=== PATIENT | female | born 1970 | race American Indian/Alaskan Native ===

== ENCOUNTER → 2016-07-29 | Outpatient (CLI) | payer OTHER ==
--- NOTE | 2016-07-29 15:44 | Mammography Report ---
BILATERAL MAMMOGRAM: FINDINGS: The breasts are almost entirely fat (<25% glandular). No mass, distortion, suspicious calcification, or skin change is seen. There is interval changes compared to her prior study in July 2015. CAD was utilized. IMPRESSION: Negative mammogram. There is no mammographic evidence of malignancy. RECOMMENDATION: Follow-up per ACS guidelines. BI-RADS CATEGORY: 1 = Negative ACR BI-RADS MAMMOGRAPHIC CODES: 0 = Needs additional imaging evaluation; 1 = Negative; 2 = Benign; 3 = Probably benign; 4 = Suspicious; 5 = Malignant; 6 = Known biopsy-proven malignancy COMMENT: 1. Dense breast tissue, i.e., adenosis, fibrocystic changes, etc., may obscure an underlying neoplasm. 2. Approximately 10% of cancers are not detected with mammography. 3. A negative mammography report should not delay biopsy if a clinically suspicious mass is present. COMMENT: Patient follow-up letters are generated in [employer] ([place]).
== END ==
LOC: SPVWC 12:54
PROVIDERS: ATTEND Internal Medicine
DX: Z12.31 Encounter for screening mammogram for malignant neoplasm of breast (principal)
CPT/HCPCS: 77067; G0202

== ENCOUNTER 2017-01-03 15:46 | Emergency (ER) | payer OTHER ==
[2017-01-03 17:07] LABS: Eosinophils % (Auto) 0.9 % (0.0-4.3); Hemoglobin 13.1 gm/dl (10.1-14.3); Mean Corpuscular HGB Conc 34 % (30-34); Mean Corpuscular Hemoglobin 27 pg (28-32); Mean Corpuscular Volume 78 fl (79-97); Platelet Count 262 K/mm3 (140-440); Red Blood Count 4.87 M/mm3 (3.65-5.03); Red Cell Distribution Width 14.7 % (13.2-15.2); White Blood Count 6.4 K/mm3 (4.5-11.0)
[2017-01-03 17:26] LABS: Anion Gap 17 mmol/L; BUN/Creatinine Ratio 28.57; Blood Urea Nitrogen 20 mg/dL (7-17); Calcium 9.2 mg/dL (8.4-10.2); Carbon Dioxide 24 mmol/L (22-30); Chloride 101.4 mmol/L (98-107); Potassium 4.6 mmol/L (3.6-5.0); Sodium 138 mmol/L (137-145)
[2017-01-03 18:44] LABS: Glucose 130 mg/dL (65-100)
--- NOTE | 2017-01-03 22:43 | Emergency Department Report ---
ED Shortness of Breath HPI - General Chief Complaint: Dyspnea/Respdistress Stated Complaint: SOB/BACK/HIP PAIN Time Seen by Provider: 01/03/17 22:30 Source: patient Mode of arrival: Ambulatory Limitations: No Limitations - History of Present Illness Initial Comments: 46 years old pleasant female coming today with main complaint of shortness of breath for approximately 6 months. Patient correlated to her shortness of breath with starting on metoprolol 25 mg blood pressure control. Patient denied any chest pain, she stated that she is feeling very weak all the time and out of breath. discussed with her primary care physician and was told because of weight gain that she have, she stated that she gained approximately 60 pounds for the last 6 months. No other complaint. MD Complaint: shortness of breath -: Gradual Improves With: rest Worsens With: exertion Associated Symptoms: denies other symptoms - Related Data Previous Rx's Medication Instructions Recorded Last Taken Type Carvedilol [Coreg] 3.125 mg PO BID #60 tablet 11/24/14 Unknown Rx Hydrochlorothiazide [Hctz] 0.5 tab PO QDAY #30 tablet 11/24/14 Unknown Rx LORazepam [Ativan] 1 mg PO BID PRN #7 tab 07/09/15 Unknown Rx Lisinopril/Hydrochlorothiazide 1 each PO QDAY #60 tablet 07/09/15 Unknown Rx [Zestoretic 20-12.5 mg] Cyclobenzaprine HCl [Flexeril 5 MG 1 tab PO TID #21 tab 07/15/15 Unknown Rx TAB] Ibuprofen [Motrin 800 MG tab] 1 tab PO Q8HR PRN #30 tablet 07/15/15 Unknown Rx Valsartan/Hydrochlorothiazide 1 tab PO QDAY #30 tablet 01/04/17 Unknown Rx [Diovan Hct 160-25 mg] Allergies Allergy/AdvReac Type Severity Reaction Status Date / Time No Known Allergies Allergy Verified 07/15/15 12:49 ED Review of Systems ROS: Stated complaint: SOB/BACK/HIP PAIN Other details as noted in HPI Comment: All other systems reviewed and negative Constitutional: denies: chills, fever Respiratory: denies: orthopnea, shortness of breath Cardiovascular: dyspnea on exertion. denies: chest pain, palpitations, syncope Gastrointestinal: denies: abdominal pain, nausea, vomiting Neurological: weakness. denies: headache ED Past Medical Hx - Past Medical History Hx Hypertension: Yes Hx Psychiatric Treatment: Yes (Panic disorder) - Surgical History Additional Surgical History: Hysterectomy - Social History Smoking Status: Never Smoker Substance Use Type: None - Medications Home Medications: Home Medications Medication Instructions Recorded Confirmed Last Taken Type Carvedilol [Coreg] 3.125 mg PO BID #60 tablet 11/24/14 07/09/15 Unknown Rx Hydrochlorothiazide [Hctz] 0.5 tab PO QDAY #30 tablet 11/24/14 07/09/15 Unknown Rx LORazepam [Ativan] 1 mg PO BID PRN #7 tab 07/09/15 Unknown Rx Lisinopril/Hydrochlorothiazide 1 each PO QDAY #60 tablet 07/09/15 Unknown Rx [Zestoretic 20-12.5 mg] Cyclobenzaprine HCl [Flexeril 5 MG 1 tab PO TID #21 tab 07/15/15 Unknown Rx TAB] Ibuprofen [Motrin 800 MG tab] 1 tab PO Q8HR PRN #30 tablet 07/15/15 Unknown Rx Valsartan/Hydrochlorothiazide 1 tab PO QDAY #30 tablet 01/04/17 Unknown Rx [Diovan Hct 160-25 mg] ED Physical Exam - General Limitations: No Limitations General appearance: alert, in no apparent distress - Eye Eye exam: Present: normal appearance - ENT ENT exam: Present: normal exam - Neck Neck exam: Present: normal inspection, full ROM. Absent: tenderness, meningismus, lymphadenopathy, thyromegaly - Respiratory Respiratory exam: Present: normal lung sounds bilaterally. Absent: wheezes, rales, rhonchi, accessory muscle use, decreased breath sounds, prolonged expiratory - Cardiovascular Cardiovascular Exam: Present: regular rate, normal rhythm, normal heart sounds - GI/Abdominal GI/Abdominal exam: Present: soft. Absent: distended, tenderness, guarding - Neurological Exam Neurological exam: Present: alert, oriented X3, CN II-XII intact - Skin Skin exam: Present: warm ED Course Vital Signs 01/03/17 01/03/17 01/03/17 16:04 22:53 23:27 Temperature 98.5 F Pulse Rate 80 76 Respiratory 18 16 Rate Blood Pressure 136/96 Blood Pressure 156/106 148/92 [Left] O2 Sat by Pulse 99 99 Oximetry ED Medical Decision Making - Lab Data Result diagrams: 01/03/17 16:40 01/03/17 16:40 - EKG Data -: EKG Interpreted by Me Rate: normal - EKG Data Interpretation: no acute changes, normal EKG - Radiology Data Radiology results: image reviewed - Medical Decision Making Review of dictation labs and x-rays did not show any acute finding to be the cause for what she have. I believe this is probably due to metoprolol plus weight gain. I recommended to stop metoprolol I, starts having on Diovan . Critical care attestation.: If time is entered above; I have spent that time in minutes in the direct care of this critically ill patient, excluding procedure time. ED Disposition Clinical Impression: Shortness of breath Disposition: DC-01 TO HOME OR SELFCARE Is pt being admited?: No Condition: Stable Instructions: Dyspnea (ED) Referrals: PRIMARY CARE, [Primary Care Provider] - 3-5 Days
[2017-01-03] MEDS ORDERED: CATAPRES ONE (22:52)
[2017-01-03] MEDS ORDERED: CATAPRES PO ONE (22:56)
[2017-01-03 23:28] VITALS: BP 148/92
--- NOTE | 2017-01-04 09:32 | XRay Report ---
ROUTINE CHEST, TWO VIEWS: HISTORY: Shortness of breath. The trachea, heart, mediastinal contour, lung alfonso and bony thorax are unremarkable. IMPRESSION: Unremarkable chest x-ray. No significant change since 11/23/15.
== END 2017-01-04 00:41 | disposition home or self-care (01) ==
LOC: ED 15:46
DX: R06.02 Shortness of breath (principal); I10 Essential (primary) hypertension
CPT/HCPCS: 36415; 71020; 80048; 83880; 84439; 84443; 84484; 85025; 93005; 93010

== ENCOUNTER 2017-05-23 00:29 | Emergency (ER) | payer OTHER ==
--- NOTE | 2017-05-23 05:29 | Emergency Department Report ---
ED Rash HPI - HPI Chief Complaint: Skin Rash Stated Complaint: RASH Time Seen by Provider: 05/23/17 04:53 Duration: Today Location: Upper Extremities Suspected Cause: Other (Lotion) Rash Symptoms: Yes Itching, No Facial Swelling, No Tongue/Oral Swelling, No Breathing Difficulties, No Choking Sensation, No Wheezing/Dyspnea, No Peeling, No Blistering, No Fever, No Lightheaded, No Malaise, No Myalgias Severity: mild Other History: This is a 46-year-old female nontoxic, well nourished in appearance, no acute signs of distress presents to the ED with c/o of bilateral shoulders and arms rash times one day. She stated she change her lotion yesterday and put her on her shoulders and arms and then a few hours later started itching and developed a macular papular rash. Patient denies any chest pain, shortness of breath, difficulty breathing, facial swelling, lip swelling, headache, stiff neck, nausea, vomiting. Patient denies any drug allergies. Past medical history includes hypertension. ED Review of Systems ROS: Stated complaint: RASH Other details as noted in HPI Constitutional: denies: chills, fever Eyes: denies: eye pain, eye discharge, vision change ENT: denies: ear pain, throat pain Respiratory: denies: cough, shortness of breath, wheezing Cardiovascular: denies: chest pain, palpitations Endocrine: no symptoms reported Gastrointestinal: denies: abdominal pain, nausea, diarrhea Genitourinary: denies: urgency, dysuria, discharge Musculoskeletal: denies: back pain, joint swelling, arthralgia Skin: rash. denies: lesions Neurological: denies: headache, weakness, paresthesias Psychiatric: denies: anxiety, depression Hematological/Lymphatic: denies: easy bleeding, easy bruising ED Past Medical Hx - Past Medical History Previous Medical History?: Yes Hx Hypertension: Yes Hx Psychiatric Treatment: Yes (Panic disorder) - Surgical History Past Surgical History?: Yes Additional Surgical History: Hysterectomy - Social History Smoking Status: Never Smoker Substance Use Type: None - Medications Home Medications: Home Medications Medication Instructions Recorded Confirmed Last Taken Type Carvedilol [Coreg] 3.125 mg PO BID #60 tablet 11/24/14 07/09/15 Unknown Rx Hydrochlorothiazide [Hctz] 0.5 tab PO QDAY #30 tablet 11/24/14 07/09/15 Unknown Rx LORazepam [Ativan] 1 mg PO BID PRN #7 tab 07/09/15 Unknown Rx Lisinopril/Hydrochlorothiazide 1 each PO QDAY #60 tablet 07/09/15 Unknown Rx [Zestoretic 20-12.5 mg] Cyclobenzaprine HCl [Flexeril 5 MG 1 tab PO TID #21 tab 07/15/15 Unknown Rx TAB] Ibuprofen [Motrin 800 MG tab] 1 tab PO Q8HR PRN #30 tablet 07/15/15 Unknown Rx Valsartan/Hydrochlorothiazide 1 tab PO QDAY #30 tablet 01/04/17 Unknown Rx [Diovan Hct 160-25 mg] diphenhydrAMINE [Benadryl CAP] 25 mg PO Q6HR PRN #12 capsule 05/23/17 Unknown Rx predniSONE [Deltasone] 40 mg PO QDAY #5 tab 05/23/17 Unknown Rx Rash Exam - Exam General: Vital signs noted. No distress. Alert and acting appropriately. GENERAL: The patient is a well-developed, well-nourished in no apparent distress. Patient is alert and acting appropriately for age. Alert and oriented 3, no apparent distress, normal gait, atraumatic. No facial swelling and no angioedema present. HEENT: Head is normocephalic and atraumatic. PERRL, Extraocular muscles are intact. Pupils are equal, round, and reactive to light and accommodation. Nares appeared normal. Mouth is well hydrated and without lesions. Mucous membranes are moist. Posterior pharynx clear of any exudate or lesions. Mouth is well hydrated and without lesions. Tonsils not erythematous or swollen. Uvula midline. Tongue elevated. Mucous members are moist. Posterior pharynx clear, no exudate or lesions. Patent airways. NECK: Supple. No carotid bruits. No lymphadenopathy or thyromegaly.nontender. No meningitic signs are noted. LUNGS: Clear to auscultation. Non labor breathing. No intercostal retractions. Symmetrical with respiration, no wheezing, no rales, or crackles. HEART: Regular rate and rhythm without murmur, rubs or gallops. No reproducible. S1, S2 present, regular rate and rhythm without murmur, no rubs, no gallops. ABDOMEN: Soft, nontender, and nondistended. Positive bowel sounds. No hepatosplenomegaly was noted. No guarding or rebound tenderness, negative epigastric bruit. Negative psoas sign, negative may sign, negative McBurneys sign EXTREMITIES: Without any cyanosis, clubbing, rash, lesions or edema. Peripheral pulses intact. Capillary refill less than 2 seconds. Full range of motion bilaterally. NEUROLOGIC: Cranial nerves II through XII are grossly intact. Alert and oriented x 3. Normal gait. Symmetrical strength and sensation. Reflexes 2+ throughout. Cerebellar testing normal. GCS score of 15. PSYCHIATRIC: Normal affect with no suicidal or homicidal ideations. HEENT: No Periorbital Edema, No Conjuctival Injection, No Chemosis, No Perioral Edema, No Tongue Edema, No Uvular Edema, No Compromised Airway, No Drooling Lungs: Yes Good Air Exchange (Normal Breath Sounds), No Wheezes, No Ronchi, No Stridor, No Cough, No Labored Respirations, No Retractions, No Use of Accessory Muscles, No Other Abnormal Lung Sounds Heart: Yes Regular, No Murmur Skin: Yes Urticarial Rash, Yes Maculopapular Rash, No Morbilliform rash, No Bulla(e), No Excoriations, No Weeping, No Tenderness, No Erythema, No Edema, No Encrustations, No Other Other: Positive: Abdomen Normal, Neurologic Normal, Musculoskeletal Normal ED Course Vital Signs 05/23/17 01:35 Temperature 98.8 F Pulse Rate 79 Respiratory 18 Rate Blood Pressure 142/95 O2 Sat by Pulse 100 Oximetry - Reevaluation(s) Reevaluation #1: 05/23/17 05:26 Patient is speaking in full sentences with no signs of distress noted. ED Medical Decision Making - Medical Decision Making 46-year-old female that presents with allergic reaction. Patient is stable and was examined by me. Patient states Solu-Medrol in the ED and patient is discharged with Benadryl and prednisone. Patient was instructed to not operate any machinery while taking Benadryl due to drowsiness. Patient was also instructed to avoid the lotion. Patient was instructed Follow-up with a primary care doctor in 3-5 days or if symptoms worsen and continue return to emergency room as soon as possible. At time time of discharge, the patient does not seem toxic or ill in appearance. No acute signs of distress noted. Patient agrees to discharge treatment plan of care. No further questions noted by the patient. Critical care attestation.: If time is entered above; I have spent that time in minutes in the direct care of this critically ill patient, excluding procedure time. ED Disposition Clinical Impression: Allergic reaction Qualifiers: Encounter type: initial encounter Qualified Code(s): T78.40XA - Allergy, unspecified, initial encounter Disposition: TO HOME OR SELFCARE Is pt being admited?: No Does the pt Need Aspirin: No Condition: Stable Instructions: Allergies (ED), Diphenhydramine (By mouth), Prednisone (By mouth) Additional Instructions: Follow-up with a primary care doctor in 3-5 days or if symptoms worsen and continue return to emergency room as soon as possible. Prescriptions: diphenhydrAMINE [Benadryl CAP] 25 mg PO Q6HR PRN #12 capsule PRN Reason: Itching predniSONE [Deltasone] 40 mg PO QDAY #5 tab Referrals: PRIMARY MD PRISCILA [Primary Care Provider] - 3-5 Days EMILIO DANIEL MD [Staff Physician] - 3-5 Days [facility] [Outside] - 3-5 Days [facility] [Outside] - 3-5 Days Forms: Work/School Release Form(ED)
[2017-05-23 05:35] VITALS: BP 139/89
== END 2017-05-23 05:35 | disposition home or self-care (01) ==
LOC: ED 00:29
DX: T78.40XA Allergy, unspecified, initial encounter (principal); I10 Essential (primary) hypertension; F41.0 Panic disorder [episodic paroxysmal anxiety]
CPT/HCPCS: 82962; 96372; 99282; J2930

== ENCOUNTER 2017-08-28 13:00 | Outpatient (CLI) | payer OTHER ==
--- NOTE | 2017-08-29 15:42 | Mammography Report ---
BILATERAL DIGITAL SCREENING MAMMOGRAM with CAD: 08/28/17 13:00:00 CLINICAL: Routine screening. COMPARISON:01/03/17 FINDINGS: The breasts are almost entirely fatty. No mass, architectural distortion or suspicious calcifications. IMPRESSION: No mammographic evidence of malignancy. BI-RADS CATEGORY: 1 - - Negative RECOMMENDATION: Routine mammographic screening in one year. COMMENT: Patient follow-up letters are generated by our [employer] application.
== END 2017-08-28 13:01 | disposition home or self-care (01) ==
LOC: SPVWC 13:00
PROVIDERS: ATTEND Internal Medicine
DX: Z12.31 Encounter for screening mammogram for malignant neoplasm of breast (principal)
CPT/HCPCS: 77067

== ENCOUNTER 2018-02-04 11:00 | Outpatient (CLI) | payer MEDICAID | END 2018-02-04 11:01 | disposition home or self-care (01) | LOC: SLR 11:00 | PROVIDERS: ATTEND Specialist | DX: G47.33 Obstructive sleep apnea (adult) (pediatric) (principal); I10 Essential (primary) hypertension; Z90.710 Acquired absence of both cervix and uterus | CPT/HCPCS: 95810 ==

== ENCOUNTER 2018-07-14 22:44 | Emergency (ER) | payer MEDICARE ==
[2018-07-15 00:07] VITALS: BP 162/97
[2018-07-15] MEDS ORDERED: IBUPROFEN PO ONE (02:31)
[2018-07-15] MEDS ORDERED: DECADRON IM ONE (02:31)
[2018-07-15] MEDS ORDERED: AUGMENTIN 875 MG PO ONE (02:31)
--- NOTE | 2018-07-15 02:59 | Emergency Department Report ---
ED ENT HPI - General Chief complaint: Sore Throat Stated complaint: THROAT PAIN/EAR PAIN Time Seen by Provider: 07/15/18 02:30 Source: patient Mode of arrival: Ambulatory Limitations: No Limitations - History of Present Illness Initial comments: Patient is a 48-year-old female who presents for sore throat , ear pain and fever congestion 3 days T maximum of 102.4 home to 97.7 in [place] today symptoms are exacerbated by swallowing there is no n/v no dizziness no lightheadedness there is no wheeziing no sob no cp MD complaint: sore throat Onset/Timin -: week(s) Location: throat Severity: moderate Severity scale (0 -10): 8 Quality: aching, crushing, sharp Consistency: constant Improves with: none Worsens with: swallowing Associated Symptoms: fever, cough, pain with swallowing, sore throat, rhinorrhea. denies: discharge from ear - Related Data Previous Rx's Medication Instructions Recorded Last Taken Type Carvedilol [Coreg] 3.125 mg PO BID #60 tablet 11/24/14 Unknown Rx hydroCHLOROthiazide [Hctz] 0.5 tab PO QDAY #30 tablet 11/24/14 Unknown Rx LORazepam [Ativan] 1 mg PO BID PRN #7 tab 07/09/15 Unknown Rx Lisinopril/Hydrochlorothiazide 1 each PO QDAY #60 tablet 07/09/15 Unknown Rx [Zestoretic 20-12.5 mg] Cyclobenzaprine HCl [Flexeril 5 MG 1 tab PO TID #21 tab 07/15/15 Unknown Rx TAB] Ibuprofen [Motrin 800 MG tab] 1 tab PO Q8HR PRN #30 tablet 07/15/15 Unknown Rx Valsartan/Hydrochlorothiazide 1 tab PO QDAY #30 tablet 01/04/17 Unknown Rx [Diovan Hct 160-25 mg] diphenhydrAMINE [Benadryl CAP] 25 mg PO Q6HR PRN #12 capsule 05/23/17 Unknown Rx predniSONE [Deltasone] 40 mg PO QDAY #5 tab 05/23/17 Unknown Rx Naproxen [Naprosyn] 500 mg PO BID #20 tablet 05/09/18 Unknown Rx traMADol [Ultram] 50 mg PO Q6HR PRN #7 tablet 05/09/18 Unknown Rx Amoxicillin/Potassium Clav 1 each PO BID 10 Days #20 tablet 07/15/18 Unknown Rx [Augmentin 875-125 Tablet] Fluticasone [Flonase] 1 spray NS QDAY #1 bottle 07/15/18 Unknown Rx Ibuprofen 800 mg PO TID PRN #30 tablet 07/15/18 Unknown Rx diphenhydrAMINE [Benadryl CAP] 25 mg PO Q6HR PRN #30 capsule 07/15/18 Unknown Rx Allergies Allergy/AdvReac Type Severity Reaction Status Date / Time No Known Allergies Allergy Verified 07/15/15 12:49 ED Dental HPI - General Chief complaint: Sore Throat Stated complaint: THROAT PAIN/EAR PAIN Time Seen by Provider: 07/15/18 02:30 Source: patient Mode of arrival: Ambulatory Limitations: No Limitations - Related Data Previous Rx's Medication Instructions Recorded Last Taken Type Carvedilol [Coreg] 3.125 mg PO BID #60 tablet 11/24/14 Unknown Rx hydroCHLOROthiazide [Hctz] 0.5 tab PO QDAY #30 tablet 11/24/14 Unknown Rx LORazepam [Ativan] 1 mg PO BID PRN #7 tab 07/09/15 Unknown Rx Lisinopril/Hydrochlorothiazide 1 each PO QDAY #60 tablet 07/09/15 Unknown Rx [Zestoretic 20-12.5 mg] Cyclobenzaprine HCl [Flexeril 5 MG 1 tab PO TID #21 tab 07/15/15 Unknown Rx TAB] Ibuprofen [Motrin 800 MG tab] 1 tab PO Q8HR PRN #30 tablet 07/15/15 Unknown Rx Valsartan/Hydrochlorothiazide 1 tab PO QDAY #30 tablet 01/04/17 Unknown Rx [Diovan Hct 160-25 mg] diphenhydrAMINE [Benadryl CAP] 25 mg PO Q6HR PRN #12 capsule 05/23/17 Unknown Rx predniSONE [Deltasone] 40 mg PO QDAY #5 tab 05/23/17 Unknown Rx Naproxen [Naprosyn] 500 mg PO BID #20 tablet 05/09/18 Unknown Rx traMADol [Ultram] 50 mg PO Q6HR PRN #7 tablet 05/09/18 Unknown Rx Amoxicillin/Potassium Clav 1 each PO BID 10 Days #20 tablet 07/15/18 Unknown Rx [Augmentin 875-125 Tablet] Fluticasone [Flonase] 1 spray NS QDAY #1 bottle 07/15/18 Unknown Rx Ibuprofen 800 mg PO TID PRN #30 tablet 07/15/18 Unknown Rx diphenhydrAMINE [Benadryl CAP] 25 mg PO Q6HR PRN #30 capsule 07/15/18 Unknown Rx Allergies Allergy/AdvReac Type Severity Reaction Status Date / Time No Known Allergies Allergy Verified 07/15/15 12:49 ED Review of Systems ROS: Stated complaint: THROAT PAIN/EAR PAIN Other details as noted in HPI Constitutional: chills, fever, malaise Eyes: denies: eye pain, eye discharge, vision change ENT: ear pain, throat pain, congestion Respiratory: denies: cough, shortness of breath, wheezing Cardiovascular: denies: chest pain, palpitations Endocrine: no symptoms reported Gastrointestinal: denies: abdominal pain, nausea, vomiting, diarrhea, constipation, hematemesis, melena Genitourinary: denies: urgency, dysuria, frequency, hematuria, discharge Musculoskeletal: denies: back pain, joint swelling, arthralgia Skin: denies: rash, lesions Neurological: numbness. denies: headache, weakness, paresthesias Psychiatric: denies: anxiety, depression Hematological/Lymphatic: denies: easy bleeding, easy bruising ED Past Medical Hx - Past Medical History Previous Medical History?: Yes Hx Hypertension: Yes Hx Psychiatric Treatment: Yes (Panic disorder) - Surgical History Past Surgical History?: Yes Additional Surgical History: Hysterectomy - Social History Smoking Status: Never Smoker Substance Use Type: None - Medications Home Medications: Home Medications Medication Instructions Recorded Confirmed Last Taken Type Carvedilol [Coreg] 3.125 mg PO BID #60 tablet 11/24/14 07/09/15 Unknown Rx hydroCHLOROthiazide [Hctz] 0.5 tab PO QDAY #30 tablet 11/24/14 07/09/15 Unknown Rx LORazepam [Ativan] 1 mg PO BID PRN #7 tab 07/09/15 Unknown Rx Lisinopril/Hydrochlorothiazide 1 each PO QDAY #60 tablet 07/09/15 Unknown Rx [Zestoretic 20-12.5 mg] Cyclobenzaprine HCl [Flexeril 5 MG 1 tab PO TID #21 tab 07/15/15 Unknown Rx TAB] Ibuprofen [Motrin 800 MG tab] 1 tab PO Q8HR PRN #30 tablet 07/15/15 Unknown Rx Valsartan/Hydrochlorothiazide 1 tab PO QDAY #30 tablet 01/04/17 Unknown Rx [Diovan Hct 160-25 mg] diphenhydrAMINE [Benadryl CAP] 25 mg PO Q6HR PRN #12 capsule 05/23/17 Unknown Rx predniSONE [Deltasone] 40 mg PO QDAY #5 tab 05/23/17 Unknown Rx Naproxen [Naprosyn] 500 mg PO BID #20 tablet 05/09/18 Unknown Rx traMADol [Ultram] 50 mg PO Q6HR PRN #7 tablet 05/09/18 Unknown Rx Amoxicillin/Potassium Clav 1 each PO BID 10 Days #20 tablet 07/15/18 Unknown Rx [Augmentin 875-125 Tablet] Fluticasone [Flonase] 1 spray NS QDAY #1 bottle 07/15/18 Unknown Rx Ibuprofen 800 mg PO TID PRN #30 tablet 07/15/18 Unknown Rx diphenhydrAMINE [Benadryl CAP] 25 mg PO Q6HR PRN #30 capsule 07/15/18 Unknown Rx ED Physical Exam - General Limitations: No Limitations General appearance: alert, in no apparent distress - Head Head exam: Present: atraumatic, normocephalic, normal inspection - Eye Eye exam: Present: normal appearance, PERRL, EOMI Pupils: Present: normal accommodation - ENT ENT exam: Present: normal exam ( ) - Expanded ENT Exam Expanded TM/Canal exam: Erythema: Right TM, Left TM, Canal Tenderness: Left TM, Right TM Mouth exam: Present: normal external inspection, muffled voice Teeth exam: Present: dental caries Throat exam: Positive: normal inspection, tonsillar erythema, tonsillomegaly. Negative: tonsillar exudate, R peritonsillar mass, L peritonsillar mass - Neck Neck exam: Present: normal inspection - Respiratory Respiratory exam: Present: normal lung sounds bilaterally, accessory muscle use. Absent: respiratory distress, wheezes, rales, rhonchi, stridor, chest wall tenderness - Cardiovascular Cardiovascular Exam: Present: regular rate, normal rhythm, normal heart sounds. Absent: systolic murmur, diastolic murmur, rubs, gallop - GI/Abdominal GI/Abdominal exam: Present: soft, normal bowel sounds. Absent: distended, tenderness, bruit, hernia - Rectal Rectal exam: Present: deferred - External exam: Absent: erythema, swelling - Extremities Exam Extremities exam: Present: normal inspection, full ROM, normal capillary refill. Absent: tenderness, pedal edema, joint swelling, calf tenderness - Back Exam Back exam: Present: normal inspection, full ROM. Absent: tenderness, CVA tenderness (R), CVA tenderness (L), muscle spasm, paraspinal tenderness, vertebral tenderness - Neurological Exam Neurological exam: Present: alert, oriented X3, CN II-XII intact, normal gait, reflexes normal. Absent: motor sensory deficit - Psychiatric Psychiatric exam: Present: normal affect, normal mood. Absent: anxious, suicidal ideation - Skin Skin exam: Present: warm, dry, intact, normal color. Absent: rash ED Course Vital Signs 07/15/18 00:05 Temperature 97.9 F Pulse Rate 76 Respiratory 18 Rate Blood Pressure 162/97 O2 Sat by Pulse 97 Oximetry ED Medical Decision Making - Medical Decision Making this is sinusitis plan. Augmentin, benadryl, ibuprofen, given decadron in ed symptoms are improved, pt will follow up with pcp in 2-3 days , pt for dc to home in stable condition at this time. Critical care attestation.: If time is entered above; I have spent that time in minutes in the direct care of this critically ill patient, excluding procedure time. ED Disposition Clinical Impression: Upper respiratory infection, acute Sinusitis Qualifiers: Sinusitis location: maxillary Chronicity: acute Recurrence: non-recurrent Qu alified Code(s): J01.00 - Acute maxillary sinusitis, unspecified AOM (acute otitis media) Qualifiers: Otitis media type: serous Laterality: left Recurrence: non-recurrent Qualified Code(s): H65.02 - Acute serous otitis media, left ear Disposition: DC-01 TO HOME OR SELFCARE Is pt being admited?: No Does the pt Need Aspirin: No Condition: Stable Instructions: Sinusitis (ED), Otitis Media (ED), Upper Respiratory Infection (ED) Prescriptions: Amoxicillin/Potassium Clav [Augmentin 875-125 Tablet] 1 each PO BID 10 Days #20 tablet diphenhydrAMINE [Benadryl CAP] 25 mg PO Q6HR PRN #30 capsule PRN Reason: congestion Fluticasone [Flonase] 1 spray NS QDAY #1 bottle Ibuprofen 800 mg PO TID PRN #30 tablet PRN Reason: pain fever Referrals: TINO CASON MD [Primary Care Provider] - 3-5 Days Forms: Work/School Release Form(ED) Time of Disposition: 03:15
== END 2018-07-15 04:00 | disposition home or self-care (01) ==
LOC: ED 22:44
DX: J01.00 Acute maxillary sinusitis, unspecified (principal); H65.02 Acute serous otitis media, left ear; I10 Essential (primary) hypertension; Z90.710 Acquired absence of both cervix and uterus
CPT/HCPCS: 96372; 99282; J1100

== ENCOUNTER 2018-10-15 22:03 | Emergency (ER) | payer MEDICARE ==
[2018-10-15 22:40] LABS: Basophils # (Auto) 0.1 K/mm3 (0.0-0.1); Basophils % (Auto) 0.7 % (0.0-1.8); Eosinophils # (Auto) 0.1 K/mm3 (0.0-0.4); Eosinophils % (Auto) 0.9 % (0.0-4.3); Hematocrit 37.6 % (30.3-42.9); Lymphocytes # (Auto) 3.1 K/mm3 (1.2-5.4); Lymphocytes % (Auto) 41.1 % (13.4-35.0); Mean Corpuscular HGB Conc 35 % (30-34); Mean Corpuscular Volume 79 fl (79-97); Monocytes # (Auto) 0.7 K/mm3 (0.0-0.8); Monocytes % (Auto) 9.5 % (0.0-7.3); Platelet Count 301 K/mm3 (140-440); Red Blood Count 4.77 M/mm3 (3.65-5.03); Red Cell Distribution Width 14.9 % (13.2-15.2)
[2018-10-15 23:07] LABS: BUN/Creatinine Ratio 20; Blood Urea Nitrogen 16 mg/dL (7-17); Calcium 9.5 mg/dL (8.4-10.2); Hemolysis Index 53
[2018-10-16] MEDS ORDERED: FIORICET PO ONE (00:51)
[2018-10-16 01:35] VITALS: BP 147/91
--- NOTE | 2018-10-16 02:04 | Emergency Department Report ---
ED Headache HPI - General Chief Complaint: Dizziness Stated Complaint: LI/DIZZINESS/BP Time Seen by Provider: 10/16/18 00:28 Source: patient Exam Limitations: no limitations - History of Present Illness Initial Comments: 48-year-old female presents to ED with retro-orbital headache, elevated blood pressure 1 week. Patient states she has been compliant with her blood pressure medication. Denies nausea, vomiting, focal numbness or weakness, chest pain, shortness of breath. Patient states she has been under a lot of stress lately due to her [id number] having a high-risk and delivery of her grandchild prematurely. Patient states no relief of headache with tylenol. Timing/Duration: 1 week Quality: moderate Modifying Factors: improves with: movement Associated Symptoms: denies: confusion, fever/chills, loss of consciousness, nausea/vomiting, numbness in legs/feet, stiff neck, weakness Allergies/Adverse Reactions: Allergies No Known Allergies Allergy (Verified 07/15/15 12:49) Home Medications: Ambulatory Orders Carvedilol [Coreg] 3.125 mg PO BID #60 tablet 11/24/14 hydroCHLOROthiazide [Hctz] 0.5 tab PO QDAY #30 tablet 11/24/14 LORazepam [Ativan] 1 mg PO BID PRN #7 tab 07/09/15 Lisinopril/Hydrochlorothiazide [Zestoretic 20-12.5 mg] 1 each PO QDAY #60 tablet 07/09/15 Cyclobenzaprine HCl [Flexeril 5 MG TAB] 1 tab PO TID #21 tab 07/15/15 Ibuprofen [Motrin 800 MG tab] 1 tab PO Q8HR PRN #30 tablet 07/15/15 Valsartan/Hydrochlorothiazide [Diovan Hct 160-25 mg] 1 tab PO QDAY #30 tablet 0 01/04/17 diphenhydrAMINE [Benadryl CAP] 25 mg PO Q6HR PRN #12 capsule 05/23/17 predniSONE [Deltasone] 40 mg PO QDAY #5 tab 05/23/17 Naproxen [Naprosyn] 500 mg PO BID #20 tablet 05/09/18 traMADol [Ultram] 50 mg PO Q6HR PRN #7 tablet 05/09/18 Amoxicillin/Potassium Clav [Augmentin 875-125 Tablet] 1 each PO BID 10 Days #20 tablet 07/15/18 Fluticasone [Flonase] 1 spray NS QDAY #1 bottle 07/15/18 Ibuprofen [Ibuprofen 800] 800 mg PO TID PRN #30 tablet 07/15/18 diphenhydrAMINE [Benadryl CAP] 25 mg PO Q6HR PRN #30 capsule 07/15/18 Butalb/Acetamin/Caff 50-325-40 [Fioricet] 1 tab PO Q6HR PRN #15 tab 10/16/18 ED Review of Systems ROS: Stated complaint: LI/DIZZINESS/BP Other details as noted in HPI Comment: All other systems reviewed and negative Constitutional: denies: chills, fever Respiratory: denies: shortness of breath Cardiovascular: denies: chest pain Gastrointestinal: denies: nausea, vomiting Neurological: other (reports dizziness) ED Past Medical Hx - Past Medical History Previous Medical History?: Yes Hx Hypertension: Yes Hx Psychiatric Treatment: Yes (Panic disorder) - Surgical History Past Surgical History?: Yes Additional Surgical History: Hysterectomy - Social History Smoking Status: Never Smoker Substance Use Type: None - Medications Home Medications: Home Medications Medication Instructions Recorded Confirmed Last Taken Type Carvedilol [Coreg] 3.125 mg PO BID #60 tablet 11/24/14 07/09/15 Unknown Rx hydroCHLOROthiazide [Hctz] 0.5 tab PO QDAY #30 tablet 11/24/14 07/09/15 Unknown Rx LORazepam [Ativan] 1 mg PO BID PRN #7 tab 07/09/15 Unknown Rx Lisinopril/Hydrochlorothiazide 1 each PO QDAY #60 tablet 07/09/15 Unknown Rx [Zestoretic 20-12.5 mg] Cyclobenzaprine HCl [Flexeril 5 MG 1 tab PO TID #21 tab 07/15/15 Unknown Rx TAB] Ibuprofen [Motrin 800 MG tab] 1 tab PO Q8HR PRN #30 tablet 07/15/15 Unknown Rx Valsartan/Hydrochlorothiazide 1 tab PO QDAY #30 tablet 01/04/17 Unknown Rx [Diovan Hct 160-25 mg] diphenhydrAMINE [Benadryl CAP] 25 mg PO Q6HR PRN #12 capsule 05/23/17 Unknown Rx predniSONE [Deltasone] 40 mg PO QDAY #5 tab 05/23/17 Unknown Rx Naproxen [Naprosyn] 500 mg PO BID #20 tablet 05/09/18 Unknown Rx traMADol [Ultram] 50 mg PO Q6HR PRN #7 tablet 05/09/18 Unknown Rx Amoxicillin/Potassium Clav 1 each PO BID 10 Days #20 tablet 07/15/18 Unknown Rx [Augmentin 875-125 Tablet] Fluticasone [Flonase] 1 spray NS QDAY #1 bottle 07/15/18 Unknown Rx Ibuprofen [Ibuprofen 800] 800 mg PO TID PRN #30 tablet 07/15/18 Unknown Rx diphenhydrAMINE [Benadryl CAP] 25 mg PO Q6HR PRN #30 capsule 07/15/18 Unknown Rx Butalb/Acetamin/Caff 50-325-40 1 tab PO Q6HR PRN #15 tab 10/16/18 Unknown Rx [Fioricet] ED Physical Exam - General Limitations: No Limitations General appearance: alert, in no apparent distress - Head Head exam: Present: atraumatic, normocephalic - Eye Eye exam: Present: normal appearance, PERRL, EOMI - ENT ENT exam: Present: mucous membranes moist - Neck Neck exam: Present: normal inspection - Respiratory Respiratory exam: Present: normal lung sounds bilaterally. Absent: respiratory distress - Cardiovascular Cardiovascular Exam: Present: regular rate, normal rhythm - GI/Abdominal GI/Abdominal exam: Absent: distended - Extremities Exam Extremities exam: Present: normal inspection - Neurological Exam Neurological exam: Present: alert, oriented X3, CN II-XII intact, normal gait. Absent: motor sensory deficit - Psychiatric Psychiatric exam: Present: normal affect, normal mood - Skin Skin exam: Present: warm, dry, intact, normal color ED Course Vital Signs 10/15/18 10/16/18 22:08 01:34 Temperature 97.9 F Pulse Rate 84 74 Respiratory 20 19 Rate Blood Pressure 152/103 Blood Pressure 147/91 [Right] O2 Sat by Pulse 96 98 Oximetry ED Medical Decision Making - Lab Data Result diagrams: 10/15/18 22:23 10/15/18 22:23 - Radiology Data Radiology results: report reviewed, image reviewed - Medical Decision Making CT Head negative. No neuro deficits on exam. LI improved w/ fioricet. Likely tension LI due to the stress of grandson being delivered at 32 weeks secondary to mother's preeclampsia. Will d/c at this time. Return precautions given. - Differential Diagnosis hypertensive LI, tension LI, intracranial abnormality Critical care attestation.: If time is entered above; I have spent that time in minutes in the direct care of this critically ill patient, excluding procedure time. ED Disposition Clinical Impression: Acute headache Disposition: TO HOME OR SELFCARE Is pt being admited?: No Condition: Stable Instructions: Acute Headache (ED) Prescriptions: Butalb/Acetamin/Caff 50-325-40 [Fioricet] 1 tab PO Q6HR PRN #15 tab PRN Reason: Headache Referrals: ELIANE ETIENNE MD [Primary Care Provider] - 3-5 Days Time of Disposition: 03:05
--- NOTE | 2018-10-16 02:07 | Cat Scan Report ---
PROCEDURE: CT HEAD/BRAIN WO CON TECHNIQUE: Computerized tomography of the head was performed without contrast material. HISTORY: Headache. COMPARISONS: None . FINDINGS: Skull and scalp: Normal . Paranasal sinuses: Normal . Ventricles and subarachnoid spaces: Normal . Cerebrum: No evidence of hemorrhage, acute infarction or mass . Cerebellum and brainstem: No evidence of hemorrhage, acute infarction or mass . Vasculature: Unremarkable. IMPRESSION: No acute intracranial abnormality. This document is electronically signed by Benton Huo DO., October 16 2018 02:05:12 AM ET
== END 2018-10-16 03:15 | disposition home or self-care (01) ==
LOC: ED 22:03
DX: R51 Headache (principal); I10 Essential (primary) hypertension; Z90.710 Acquired absence of both cervix and uterus
CPT/HCPCS: 36415; 70450; 80048; 85025; 93005; 93010

== ENCOUNTER 2018-12-09 10:52 | Outpatient (CLI) | payer MEDICARE ==
[2018-12-09 13:38] LABS: Chol/HDL Ratio 2.87 %
[2018-12-12 11:21] LABS: Vitamin D, 25-OH, D2 <4 ng/mL
== END 2018-12-09 10:53 | disposition home or self-care (01) ==
LOC: LAB 10:52
PROVIDERS: ATTEND Internal Medicine
DX: Z13.21 Encounter for screening for nutritional disorder (principal); E78.5 Hyperlipidemia, unspecified; E06.9 Thyroiditis, unspecified; R73.03 Prediabetes; I10 Essential (primary) hypertension; Z90.710 Acquired absence of both cervix and uterus
CPT/HCPCS: 36415; 80061; 82306; 82607; 83036; 84443

== ENCOUNTER 2019-01-13 15:27 | Outpatient (CLI) | payer MEDICARE ==
--- NOTE | 2019-01-13 16:49 | XRay Report ---
BILATERAL KNEES ONE VIEW INDICATION / CLINICAL INFORMATION: BILATERAL PRIMARY OSTEOARTHRITIS OF KNEE. COMPARISON: None available. FINDINGS: Standing AP views of both knees show mild to moderate articular space narrowing and hypertrophic spur ring, minimally more prominent on the left. Appearance is consistent with mild osteoarthritis. Signer Name: Gennaro Gomez MD Signed: 01/13/2019 4:45 PM Workstation Name: [id number]
== END 2019-01-13 15:28 | disposition home or self-care (01) ==
LOC: XRAY 15:27
PROVIDERS: ATTEND Internal Medicine
DX: M17.0 Bilateral primary osteoarthritis of knee (principal); I10 Essential (primary) hypertension
CPT/HCPCS: 73565

== ENCOUNTER 2019-01-16 10:56 | Emergency (ER) | payer MEDICARE ==
--- NOTE | 2019-01-16 12:56 | Emergency Department Report ---
ED Allergic Reaction HPI - General Chief complaint: Upper Respiratory Infection Stated complaint: SORE THROAT Time Seen by Provider: 01/16/19 11:36 Source: patient Mode of arrival: Ambulatory Limitations: No Limitations - Related Data Previous Rx's Medication Instructions Recorded Last Taken Type Carvedilol [Coreg] 3.125 mg PO BID #60 tablet 11/24/14 Unknown Rx hydroCHLOROthiazide [Hctz] 0.5 tab PO QDAY #30 tablet 11/24/14 Unknown Rx LORazepam [Ativan] 1 mg PO BID PRN #7 tab 07/09/15 Unknown Rx Lisinopril/Hydrochlorothiazide 1 each PO QDAY #60 tablet 07/09/15 Unknown Rx [Zestoretic 20-12.5 mg] Cyclobenzaprine HCl [Flexeril 5 MG 1 tab PO TID #21 tab 07/15/15 Unknown Rx TAB] Ibuprofen [Motrin 800 MG tab] 1 tab PO Q8HR PRN #30 tablet 07/15/15 Unknown Rx Valsartan/Hydrochlorothiazide 1 tab PO QDAY #30 tablet 01/04/17 Unknown Rx [Diovan Hct 160-25 mg] diphenhydrAMINE [Benadryl CAP] 25 mg PO Q6HR PRN #12 capsule 05/23/17 Unknown Rx predniSONE [Deltasone] 40 mg PO QDAY #5 tab 05/23/17 Unknown Rx Naproxen [Naprosyn] 500 mg PO BID #20 tablet 05/09/18 Unknown Rx traMADol [Ultram] 50 mg PO Q6HR PRN #7 tablet 05/09/18 Unknown Rx Amoxicillin/Potassium Clav 1 each PO BID 10 Days #20 tablet 07/15/18 Unknown Rx [Augmentin 875-125 Tablet] Fluticasone [Flonase] 1 spray NS QDAY #1 bottle 07/15/18 Unknown Rx Ibuprofen [Ibuprofen 800] 800 mg PO TID PRN #30 tablet 07/15/18 Unknown Rx diphenhydrAMINE [Benadryl CAP] 25 mg PO Q6HR PRN #30 capsule 07/15/18 Unknown Rx Butalb/Acetamin/Caff 50-325-40 1 tab PO Q6HR PRN #15 tab 10/16/18 Unknown Rx [Fioricet] Allergies Allergy/AdvReac Type Severity Reaction Status Date / Time No Known Allergies Allergy Verified 07/15/15 12:49 ED Review of Systems ROS: Stated complaint: SORE THROAT Other details as noted in HPI ED Past Medical Hx - Past Medical History Hx Hypertension: Yes Hx Psychiatric Treatment: Yes (Panic disorder) - Surgical History Additional Surgical History: Hysterectomy - Social History Smoking Status: Former Smoker - Medications Home Medications: Home Medications Medication Instructions Recorded Confirmed Last Taken Type Carvedilol [Coreg] 3.125 mg PO BID #60 tablet 11/24/14 07/09/15 Unknown Rx hydroCHLOROthiazide [Hctz] 0.5 tab PO QDAY #30 tablet 11/24/14 07/09/15 Unknown Rx LORazepam [Ativan] 1 mg PO BID PRN #7 tab 07/09/15 Unknown Rx Lisinopril/Hydrochlorothiazide 1 each PO QDAY #60 tablet 07/09/15 Unknown Rx [Zestoretic 20-12.5 mg] Cyclobenzaprine HCl [Flexeril 5 MG 1 tab PO TID #21 tab 07/15/15 Unknown Rx TAB] Ibuprofen [Motrin 800 MG tab] 1 tab PO Q8HR PRN #30 tablet 07/15/15 Unknown Rx Valsartan/Hydrochlorothiazide 1 tab PO QDAY #30 tablet 01/04/17 Unknown Rx [Diovan Hct 160-25 mg] diphenhydrAMINE [Benadryl CAP] 25 mg PO Q6HR PRN #12 capsule 05/23/17 Unknown Rx predniSONE [Deltasone] 40 mg PO QDAY #5 tab 05/23/17 Unknown Rx Naproxen [Naprosyn] 500 mg PO BID #20 tablet 05/09/18 Unknown Rx traMADol [Ultram] 50 mg PO Q6HR PRN #7 tablet 05/09/18 Unknown Rx Amoxicillin/Potassium Clav 1 each PO BID 10 Days #20 tablet 07/15/18 Unknown Rx [Augmentin 875-125 Tablet] Fluticasone [Flonase] 1 spray NS QDAY #1 bottle 07/15/18 Unknown Rx Ibuprofen [Ibuprofen 800] 800 mg PO TID PRN #30 tablet 07/15/18 Unknown Rx diphenhydrAMINE [Benadryl CAP] 25 mg PO Q6HR PRN #30 capsule 07/15/18 Unknown Rx Butalb/Acetamin/Caff 50-325-40 1 tab PO Q6HR PRN #15 tab 10/16/18 Unknown Rx [Fioricet] ED Physical Exam - General Limitations: No Limitations ED Course Vital Signs 01/16/19 11:01 Temperature 97.9 F Pulse Rate 69 Respiratory 18 Rate Blood Pressure 158/95 Critical care attestation.: If time is entered above; I have spent that time in minutes in the direct care of this critically ill patient, excluding procedure time. ED Disposition Condition: Stable Referrals: PRIMARY CARE, [Primary Care Provider] - 3-5 Days
--- NOTE | 2019-01-16 12:59 | Emergency Department Report ---
Minor Respiratory - HPI Chief Complaint: Upper Respiratory Infection Stated Complaint: SORE THROAT Time Seen by Provider: 01/16/19 11:36 Duration: 10 days Pain Location: Facial, Throat Severity: moderate (6/10) Minor Respiratory: Yes Rhinorrhea (nasal congestion and postnasal drip), Yes Sore Throat, Yes Able to Tolerate Fluids, Yes Cough, No Ear Pain (clogged ear sensation), No Sick Contacts, No Hemoptysis, No Chest Pain, No Shortness of Breath, No Fever Other History: This is a 48-year-old female who was seen at urgent care yesterday and was placed on Augmentin and Flonase for sinus infection and she said that they forgot to give her her steroid shot and steroid because they were very busy and she went back today but they were closed. Patient said that she gets sinus infection a lot of MrMelodie been going on for 10 days and she has been trying [id number] medication does not work in so she would like to have a steroid shot and something to go home with. She also reports that she is having a lot of drainage to the back of her throat. Denies any shortness of breath or chest pain. Denies any fever or chills or nausea. Pain is 6 out of 10 to face and to throat intermittently. Denies any difficulty in swallowing. ED Review of Systems ROS: Stated complaint: SORE THROAT Other details as noted in HPI Constitutional: denies: chills, fever Eyes: denies: eye discharge ENT: throat pain, congestion, other (clogged ear sensation of facial pain) Respiratory: cough. denies: shortness of breath, SOB with exertion, SOB at rest, stridor, wheezing Cardiovascular: denies: chest pain, palpitations, dyspnea on exertion, edema, syncope Gastrointestinal: denies: nausea, vomiting Musculoskeletal: denies: back pain, joint swelling, arthralgia, myalgia Skin: denies: lesions Neurological: denies: headache, numbness, paresthesias, abnormal gait, vertigo ED Past Medical Hx - Past Medical History Previous Medical History?: Yes Hx Hypertension: Yes Hx Psychiatric Treatment: Yes (Panic disorder) Additional medical history: Recurrent sinus infections - Surgical History Past Surgical History?: Yes Additional Surgical History: Hysterectomy - Family History Family history: hypertension - Social History Smoking Status: Former Smoker Substance Use Type: None - Medications Home Medications: Home Medications Medication Instructions Recorded Confirmed Last Taken Type Carvedilol [Coreg] 3.125 mg PO BID #60 tablet 11/24/14 07/09/15 Unknown Rx hydroCHLOROthiazide [Hctz] 0.5 tab PO QDAY #30 tablet 11/24/14 07/09/15 Unknown Rx LORazepam [Ativan] 1 mg PO BID PRN #7 tab 07/09/15 Unknown Rx Lisinopril/Hydrochlorothiazide 1 each PO QDAY #60 tablet 07/09/15 Unknown Rx [Zestoretic 20-12.5 mg] Cyclobenzaprine HCl [Flexeril 5 MG 1 tab PO TID #21 tab 07/15/15 Unknown Rx TAB] Ibuprofen [Motrin 800 MG tab] 1 tab PO Q8HR PRN #30 tablet 07/15/15 Unknown Rx Valsartan/Hydrochlorothiazide 1 tab PO QDAY #30 tablet 01/04/17 Unknown Rx [Diovan Hct 160-25 mg] diphenhydrAMINE [Benadryl CAP] 25 mg PO Q6HR PRN #12 capsule 05/23/17 Unknown Rx predniSONE [Deltasone] 40 mg PO QDAY #5 tab 05/23/17 Unknown Rx Naproxen [Naprosyn] 500 mg PO BID #20 tablet 05/09/18 Unknown Rx traMADol [Ultram] 50 mg PO Q6HR PRN #7 tablet 05/09/18 Unknown Rx Amoxicillin/Potassium Clav 1 each PO BID 10 Days #20 tablet 07/15/18 Unknown Rx [Augmentin 875-125 Tablet] Fluticasone [Flonase] 1 spray NS QDAY #1 bottle 07/15/18 Unknown Rx Ibuprofen [Ibuprofen 800] 800 mg PO TID PRN #30 tablet 07/15/18 Unknown Rx diphenhydrAMINE [Benadryl CAP] 25 mg PO Q6HR PRN #30 capsule 07/15/18 Unknown Rx Butalb/Acetamin/Caff 50-325-40 1 tab PO Q6HR PRN #15 tab 10/16/18 Unknown Rx [Fioricet] ALBUTEROL Inhaler (OR & NICU) 2 puff IH Q6H PRN #1 inhalation 01/16/19 Unknown Rx [ProAir HFA Inhaler] Cetirizine HCl [ZyrTEC] 10 mg PO QAM 14 Days #14 capsule 01/16/19 Unknown Rx methylPREDNISolone [Medrol 4MG 4 mg PO QAM 6 Days #1 tab.ds.pk 01/16/19 Unknown Rx DOSEPAK (21 tabs)] Minor Respiratory Exam - Exam General: Vital signs noted. No distress. Alert and acting appropriately. This is a 48-year-old female well-nourished well-developed in no acute distress. HEENT: Yes Moist Mucous Membranes, Yes Rhinorrhea (nasal turbinates congested with erythema and hypertrophy), Yes Frontal Tenderness, Yes Maxillary Tenderness, No Pharyngeal Erythema, No Pharyngeal Exudates, No Conjuctival Injection Ear: Neither TM Bulge (bilateral middle ear effusion without any infection), Neither TM Erythema, Neither EAC Pain, Neither EAC Discharge Neck: Yes Supple (full range of motion with no C-spine tenderness), No Adenopathy Lungs: Yes Good Air Exchange, Yes Wheezes (scattered wheezing to upper lung alfonso), Yes Cough (dry cough), No Ronchi, No Stridor, No Labored Respirations, No Retractions, No Use of Accessory Muscles, No Other Abnormal Lung Sounds Heart: Yes Regular, No Murmur Abdomen: No Tenderness, No Peritoneal Signs Skin: No Rash, No Edema Neurologic: Alert and oriented, no deficits. Musculoskeletal: Unremarkable. No cce. + 2 pulses in all extremities, no neurovascular compromise ED Course Vital Signs 01/16/19 11:01 Temperature 97.9 F Pulse Rate 69 Respiratory 18 Rate Blood Pressure 158/95 - Reevaluation(s) Reevaluation #1: 01/16/19 13:42 given Decadron 10 mg IM and emergency room with no adverse reaction ED Medical Decision Making - Medical Decision Making This is a 48-year-old female who was treated for sinus infection yesterday at urgent care and was given Augmentin and Flonase and was told that she needed steroids but they forgot to give it to her and she went back to the urgent care street but they were closed. Patient was given Decadron injection emergency room and given Medrol Dosepak along with Zyrtec and she was found to have scattered wheezes and upper lung alfonso suspect from postnasal drainage and albuterol inhaler added for acute bronchitis. Patient is already on Augmentin and Flonase and prescription given for Medrol Dosepak, Zyrtec and albuterol inhaler. Discharged home in stable condition in no acute distress. Critical care attestation.: If time is entered above; I have spent that time in minutes in the direct care of this critically ill patient, excluding procedure time. ED Disposition Clinical Impression: Acute rhinosinusitis Acute bronchitis Qualifiers: Bronchitis organism: unspecified organism Qualified Code(s): J20.9 - Acute bronchitis, unspecified Disposition: DC- TO HOME OR SELFCARE Is pt being admited?: No Does the pt Need Aspirin: No Condition: Stable Instructions: Acute Bronchitis (ED), Acute Bacterial Rhinosinusitis (ED) Additional Instructions: Please follow up with her primary care physician in 2 days. If he condition worsens return to the emergency room Take Medication as prescribed Referrals: PRIMARY CAREMD [Primary Care Provider] - 01/18/19 Forms: Accompanied Note, Work/School Release Form(ED)
[2019-01-16] MEDS ORDERED: DECADRON IM ONE (13:01)
[2019-01-16 14:12] VITALS: BP 143/87
== END 2019-01-16 14:12 | disposition home or self-care (01) ==
LOC: ED 10:56
DX: J20.9 Acute bronchitis, unspecified (principal); J01.80 Other acute sinusitis; J01.10 Acute frontal sinusitis, unspecified; J01.00 Acute maxillary sinusitis, unspecified; I10 Essential (primary) hypertension; F41.0 Panic disorder [episodic paroxysmal anxiety]; Z98.890 Other specified postprocedural states; Z90.710 Acquired absence of both cervix and uterus; Z87.891 Personal history of nicotine dependence; Z79.899 Other long term (current) drug therapy
CPT/HCPCS: 96372; 99282; J1100

== ENCOUNTER 2019-03-09 16:03 | Outpatient (CLI) | payer MEDICARE ==
[2019-03-09 16:34] LABS: Bacteria,Urine 2+ /HPF (Negative); Bilirubin,Urine NEG (Negative); Blood,Urine MOD (Negative); Color,Urine Yellow (Yellow); Granular Casts,Urine 12 /LPF; Hyaline Casts,Urine 9 /LPF; Mucus,Urine 1+ /HPF; Urobilinogen,Urine < 2.0 mg/dL (<2.0)
[2019-03-09 16:35] LABS: WBC,Urine > 182.0 /HPF (0.0-6.0)
== END 2019-03-09 16:04 | disposition home or self-care (01) ==
LOC: LAB 16:03
PROVIDERS: ATTEND Internal Medicine
DX: N39.0 Urinary tract infection, site not specified (principal); I10 Essential (primary) hypertension
CPT/HCPCS: 81001; 87076; 87086; 87186

== ENCOUNTER 2019-04-13 10:13 | Emergency (ER) | payer MEDICARE ==
--- NOTE | 2019-04-13 11:35 | XRay Report ---
RIGHT SHOULDER 3 VIEWS INDICATION: shoulder pain. COMPARISON: No relevant prior imaging study available. FINDINGS: No fracture or dislocation is seen. There is mild acromioclavicular degenerative change. IMPRESSION: 1. No acute findings. RIGHT ELBOW 3 VIEWS INDICATION: Right elbow pain. COMPARISON: No relevant prior imaging study available. FINDINGS: No acute, displaced fracture or dislocation is seen. No definite joint effusion. There is mild joint space narrowing at the ulnohumeral articulation with possible punctate intra-articular osteochondral body. IMPRESSION: 1. No acute findings. Signer Name: Doug Parisi MD Signed: 04/13/2019 11:30 AM Workstation Name: [id number]
--- NOTE | 2019-04-13 12:07 | Emergency Department Report ---
ED General Adult HPI - General Chief complaint: Extremity Injury, Upper Stated complaint: RT ARM/SHOULDER PAIN Time Seen by Provider: 04/13/19 11:49 Source: patient Mode of arrival: Ambulatory Limitations: No Limitations - History of Present Illness Initial comments: 48-year-old -[place]i female complains of right elbow and shoulder pain 2 weeks. She denies any injuries, heavy lifting, or repetitive motions with the elbow or shoulder. He also denies any redness or swelling of the joints. He admits to history arthritis and family history of rheumatoid arthritis. She states ibuprofen has been working somewhat for her pain, but pain got worse today after putting heat on her elbow. She states her elbow is now very stiff and she is having difficulty extending her elbow. He rates her pain as a 8/10 in severity and states the pain is primarily in her elbow area she denies any numbness/tingling/weakness in her right upper extremity - Related Data Previous Rx's Medication Instructions Recorded Last Taken Type carvediloL [Coreg] 3.125 mg PO BID #60 tablet 11/24/14 Unknown Rx hydroCHLOROthiazide [Hctz] 0.5 tab PO QDAY #30 tablet 11/24/14 Unknown Rx LORazepam [Ativan] 1 mg PO BID PRN #7 tab 07/09/15 Unknown Rx Lisinopril/Hydrochlorothiazide 1 each PO QDAY #60 tablet 07/09/15 Unknown Rx [Zestoretic 20-12.5 mg] Cyclobenzaprine HCl [Flexeril 5 MG 1 tab PO TID #21 tab 07/15/15 Unknown Rx TAB] Ibuprofen [Motrin 800 MG tab] 1 tab PO Q8HR PRN #30 tablet 07/15/15 Unknown Rx Valsartan/Hydrochlorothiazide 1 tab PO QDAY #30 tablet 01/04/17 Unknown Rx [Diovan Hct 160-25 mg] diphenhydrAMINE [Benadryl CAP] 25 mg PO Q6HR PRN #12 capsule 05/23/17 Unknown Rx predniSONE [Deltasone] 40 mg PO QDAY #5 tab 05/23/17 Unknown Rx Naproxen [Naprosyn] 500 mg PO BID #20 tablet 05/09/18 Unknown Rx traMADoL [Ultram] 50 mg PO Q6HR PRN #7 tablet 05/09/18 Unknown Rx Amoxicillin/Potassium Clav 1 each PO BID 10 Days #20 tablet 07/15/18 Unknown Rx [Augmentin 875-125 Tablet] Fluticasone [Flonase] 1 spray NS QDAY #1 bottle 07/15/18 Unknown Rx Ibuprofen [Ibuprofen 800] 800 mg PO TID PRN #30 tablet 07/15/18 Unknown Rx diphenhydrAMINE [Benadryl CAP] 25 mg PO Q6HR PRN #30 capsule 07/15/18 Unknown Rx Butalb/Acetamin/Caff 50-325-40 1 tab PO Q6HR PRN #15 tab 10/16/18 Unknown Rx [Fioricet] ALBUTEROL Inhaler (OR & NICU) 2 puff IH Q6H PRN #1 inhalation 01/16/19 Unknown Rx [ProAir HFA Inhaler] Cetirizine HCl [ZyrTEC] 10 mg PO QAM 14 Days #14 capsule 01/16/19 Unknown Rx methylPREDNISolone [Medrol 4MG 4 mg PO QAM 6 Days #1 tab.ds.pk 01/16/19 Unknown Rx DOSEPAK (21 tabs)] Diclofenac Sodium 50 mg PO TID PRN #21 tablet. 04/13/19 Unknown Rx Prednisone [predniSONE 10 mg 10 mg PO .TAPER #1 tab.ds.pk 04/13/19 Unknown Rx (6-Day Pack, 21 Tabs)] Allergies Allergy/AdvReac Type Severity Reaction Status Date / Time lisinopril Allergy Anaphylaxis Verified 04/13/19 10:21 ED Review of Systems ROS: Stated complaint: RT ARM/SHOULDER PAIN Other details as noted in HPI Comment: All other systems reviewed and negative Respiratory: denies: cough, orthopnea, shortness of breath Cardiovascular: denies: chest pain, palpitations, edema Musculoskeletal: as per HPI ED Past Medical Hx - Past Medical History Previous Medical History?: Yes Hx Hypertension: Yes Hx Arthritis: Yes Hx Psychiatric Treatment: Yes (Panic disorder) Additional medical history: Recurrent sinus infections - Surgical History Past Surgical History?: Yes Additional Surgical History: Hysterectomy - Social History Smoking Status: Never Smoker Substance Use Type: None - Medications Home Medications: Home Medications Medication Instructions Recorded Confirmed Last Taken Type carvediloL [Coreg] 3.125 mg PO BID #60 tablet 11/24/14 07/09/15 Unknown Rx hydroCHLOROthiazide [Hctz] 0.5 tab PO QDAY #30 tablet 11/24/14 07/09/15 Unknown Rx LORazepam [Ativan] 1 mg PO BID PRN #7 tab 07/09/15 Unknown Rx Lisinopril/Hydrochlorothiazide 1 each PO QDAY #60 tablet 07/09/15 Unknown Rx [Zestoretic 20-12.5 mg] Cyclobenzaprine HCl [Flexeril 5 MG 1 tab PO TID #21 tab 07/15/15 Unknown Rx TAB] Ibuprofen [Motrin 800 MG tab] 1 tab PO Q8HR PRN #30 tablet 07/15/15 Unknown Rx Valsartan/Hydrochlorothiazide 1 tab PO QDAY #30 tablet 01/04/17 Unknown Rx [Diovan Hct 160-25 mg] diphenhydrAMINE [Benadryl CAP] 25 mg PO Q6HR PRN #12 capsule 05/23/17 Unknown Rx predniSONE [Deltasone] 40 mg PO QDAY #5 tab 05/23/17 Unknown Rx Naproxen [Naprosyn] 500 mg PO BID #20 tablet 05/09/18 Unknown Rx traMADoL [Ultram] 50 mg PO Q6HR PRN #7 tablet 05/09/18 Unknown Rx Amoxicillin/Potassium Clav 1 each PO BID 10 Days #20 tablet 07/15/18 Unknown Rx [Augmentin 875-125 Tablet] Fluticasone [Flonase] 1 spray NS QDAY #1 bottle 07/15/18 Unknown Rx Ibuprofen [Ibuprofen 800] 800 mg PO TID PRN #30 tablet 07/15/18 Unknown Rx diphenhydrAMINE [Benadryl CAP] 25 mg PO Q6HR PRN #30 capsule 07/15/18 Unknown Rx Butalb/Acetamin/Caff 50-325-40 1 tab PO Q6HR PRN #15 tab 10/16/18 Unknown Rx [Fioricet] ALBUTEROL Inhaler (OR & NICU) 2 puff IH Q6H PRN #1 inhalation 01/16/19 Unknown Rx [ProAir HFA Inhaler] Cetirizine HCl [ZyrTEC] 10 mg PO QAM 14 Days #14 capsule 01/16/19 Unknown Rx methylPREDNISolone [Medrol 4MG 4 mg PO QAM 6 Days #1 tab.ds.pk 01/16/19 Unknown Rx DOSEPAK (21 tabs)] Diclofenac Sodium 50 mg PO TID PRN #21 tablet. 04/13/19 Unknown Rx Prednisone [predniSONE 10 mg 10 mg PO .TAPER #1 tab.ds.pk 04/13/19 Unknown Rx (6-Day Pack, 21 Tabs)] ED Physical Exam - General Limitations: No Limitations General appearance: alert, in no apparent distress - Head Head exam: Present: atraumatic, normocephalic - Eye Eye exam: Present: normal appearance - Neck Neck exam: Present: normal inspection, full ROM. Absent: tenderness - Respiratory Respiratory exam: Present: normal lung sounds bilaterally. Absent: respiratory distress - Cardiovascular Cardiovascular Exam: Present: regular rate, normal rhythm - Extremities Exam Extremities exam: Present: normal capillary refill - Expanded Upper Extremity Exam Right Shoulder Exam: Present: full ROM, tenderness (mild tenderness over the biceps tendon without swelling or over lying erythema noted). Absent: swelling, abrasion, laceration, ecchymosis, deformity, crepidus, dislocation, erythema, tenderness over AC joint Elbow exam: Present: tenderness (over lateral and medial epicondyles without overlying erythema or swelling noted). Absent: full ROM (mcdaniel only able to extend her elbow to about 80), swelling, abrasion, laceration, ecchymosis, deformity, crepidus, dislocation, erythema ED Course Vital Signs 04/13/19 10:33 Temperature 97.8 F Pulse Rate 96 H Respiratory 18 Rate Blood Pressure 141/86 O2 Sat by Pulse 98 Oximetry ED Medical Decision Making - Radiology Data Radiology results: report reviewed RIGHT SHOULDER 3 VIEWS INDICATION: shoulder pain. COMPARISON: No relevant prior imaging study available. FINDINGS: No fracture or dislocation is seen. There is mild acromioclavicular degenerative change. IMPRESSION: 1. No acute findings. RIGHT ELBOW 3 VIEWS INDICATION: Right elbow pain. COMPARISON: No relevant prior imaging study available. FINDINGS: No acute, displaced fracture or dislocation is seen. No definite joint effusion. There is mild joint space narrowing at the ulnohumeral articulation with possible punctate intra-articular osteochondral body. IMPRESSION: 1. No acute findings. - Medical Decision Making 48-year-old female patient here with 2 weeks of right elbow and shoulder pain, worsening today after applying heat to elbow. X-rays show arthritic changes and shoulder and in elbow. Patient to discontinue ibuprofen, and start diclofenac and prednisone. She states she follows with Dr. Kurt, orthopedicsrecommend follow-up within 3-5 days for further assessment. Discussed strict return precautions in detail with patient who states understanding. Critical care attestation.: If time is entered above; I have spent that time in minutes in the direct care of this critically ill patient, excluding procedure time. ED Disposition Clinical Impression: Arthritis of right elbow, Arthritis of right shoulder region Disposition: TO HOME OR SELFCARE Is pt being admited?: No Condition: Stable Instructions: Osteoarthritis (ED) Additional Instructions: His follow-up with your email marketing specialist, Dr. Hicks within 3-5 days. Prescriptions: Diclofenac Sodium 50 mg PO TID PRN #21 tablet. PRN Reason: Pain , Severe (7-10) Prednisone [predniSONE 10 mg (6-Day Pack, 21 Tabs)] 10 mg PO .TAPER #1 tab.ds.pk
[2019-04-13 13:00] VITALS: BP 138/92
== END 2019-04-13 13:00 | disposition home or self-care (01) ==
LOC: ED 10:13
DX: M25.511 Pain in right shoulder (principal); M25.521 Pain in right elbow; I10 Essential (primary) hypertension; M19.90 Unspecified osteoarthritis, unspecified site; Z90.710 Acquired absence of both cervix and uterus; Z79.899 Other long term (current) drug therapy; Z88.6 Allergy status to analgesic agent

== ENCOUNTER 2019-04-26 11:43 | Outpatient (CLI) | payer MEDICARE ==
[2019-04-26 12:46] LABS: Basophils % (Auto) 0.5 % (0.0-1.8); Eosinophils % (Auto) 0.8 % (0.0-4.3); Hematocrit 39.7 % (30.3-42.9); Hemoglobin 13.3 gm/dl (10.1-14.3); Lymphocytes # (Auto) 2.5 K/mm3 (1.2-5.4); Lymphocytes % (Auto) 44.8 % (13.4-35.0); Mean Corpuscular HGB Conc 34 % (30-34); Mean Corpuscular Volume 81 fl (79-97); Monocytes # (Auto) 0.4 K/mm3 (0.0-0.8); Monocytes % (Auto) 7.5 % (0.0-7.3); Platelet Count 311 K/mm3 (140-440); Red Blood Count 4.89 M/mm3 (3.65-5.03); Red Cell Distribution Width 15.1 % (13.2-15.2)
[2019-04-26 13:04] LABS: Bilirubin,Urine NEG (Negative); Blood,Urine NEG (Negative); Color,Urine Yellow (Yellow); Mucus,Urine FEW /HPF; Protein,Urine <15 mg/dL mg/dL (Negative); Urobilinogen,Urine < 2.0 mg/dL (<2.0)
[2019-04-26 13:07] LABS: Alanine Aminotransferase 15 units/L (7-56); Albumin 4.3 g/dL (3.9-5); BUN/Creatinine Ratio 15; Blood Urea Nitrogen 12 mg/dL (7-17); Calcium 9.8 mg/dL (8.4-10.2); Hemolysis Index 3; LDL Cholesterol,Direct 106 mg/dL (50-130)
[2019-04-26 13:17] LABS: Chol/HDL Ratio 2.88 %; HDL Cholesterol 60 mg/dL (40-59)
[2019-04-30 15:21] LABS: Vitamin D, 25-OH, D2 <4 ng/mL
== END 2019-04-26 11:44 | disposition home or self-care (01) ==
LOC: LAB 11:43
PROVIDERS: ATTEND Internal Medicine
DX: Z00.01 Encounter for general adult medical examination with abnormal findings (principal); R73.03 Prediabetes; E78.5 Hyperlipidemia, unspecified; E06.9 Thyroiditis, unspecified; E56.9 Vitamin deficiency, unspecified; E55.9 Vitamin D deficiency, unspecified
CPT/HCPCS: 36415; 80053; 80061; 81001; 82306; 82607; 83036; 84443; 85025

== ENCOUNTER 2019-07-02 08:22 | Outpatient (CLI) | payer MEDICARE ==
--- NOTE | 2019-07-02 09:40 | Magnetic Resonance Report ---
MR LE joint LT wo con INDICATION / CLINICAL INFORMATION: ISABELLE PRIMARY OSTEOARTHRITIS,KNEE PAIN. TECHNIQUE: Multiplanar, multisequence MR images were obtained. COMPARISON: Radiographs 01/13/2019 FINDINGS: No acute meniscal tear is seen. There is mild extrusion of the meniscal bodies. Cruciate and collateral ligaments are intact, as is the extensor mechanism. There is no joint effusion, synovitis, or intra-articular body. No bursal fluid collections are seen. There is tricompartmental joint space narrowing with minimal osteophyte formation and diffuse cartila ge thinning. Focal full-thickness chondral fissuring is seen along the lateral side of the palate wit h mild underlying subchondral edema. There is mild bone marrow edema in the posterior lateral tibial plateau which may be due to overlying advanced cartilage loss. Bone marrow signal is otherwise unrema rkable. IMPRESSION: 1. No acute meniscal tear, ligament injury, or effusion. 2. Mild tricompartmental osteoarthrosis, as above. Signer Name: Doug Parisi MD Signed: 07/02/2019 9:35 AM Workstation Name: [email or web address]
== END 2019-07-02 08:23 | disposition home or self-care (01) ==
LOC: MRI 08:22
PROVIDERS: ATTEND Orthopaedic Surgery
DX: M17.0 Bilateral primary osteoarthritis of knee (principal); M25.761 Osteophyte, right knee; M25.762 Osteophyte, left knee
CPT/HCPCS: 73721

== ENCOUNTER 2020-04-28 11:00 | Outpatient (CLI) | payer MEDICARE | END 2020-04-28 11:01 | disposition home or self-care (01) | LOC: SLR 11:00 | PROVIDERS: ATTEND Internal Medicine | DX: G47.33 Obstructive sleep apnea (adult) (pediatric) (principal); E66.9 Obesity, unspecified; I10 Essential (primary) hypertension | CPT/HCPCS: 95810 ==

== ENCOUNTER 2020-05-02 11:00 | Outpatient (CLI) | payer MEDICARE | END 2020-05-02 11:01 | disposition home or self-care (01) | LOC: SLR 11:00 | PROVIDERS: ATTEND Internal Medicine | DX: G47.33 Obstructive sleep apnea (adult) (pediatric) (principal); I10 Essential (primary) hypertension; E66.9 Obesity, unspecified | CPT/HCPCS: 95811 ==

== ENCOUNTER 2020-07-26 14:42 | Outpatient (CLI) | payer MEDICARE ==
--- NOTE | 2020-07-26 15:17 | XRay Report ---
RIGHT HAND 3 VIEWS INDICATION: RIGHT HAND PAIN. COMPARISON: None. IMPRESSION: No acute osseous or soft tissue abnormality. No significant joint pathology. Signer Name: Howie Ly Jr, MD Signed: 07/26/2020 3:12 PM Workstation Name: [id number]
== END 2020-07-26 14:43 | disposition home or self-care (01) ==
LOC: XRAY 14:42
PROVIDERS: ATTEND Internal Medicine
DX: M79.641 Pain in right hand (principal)

== ENCOUNTER 2020-08-09 09:23 | Outpatient (CLI) | payer MEDICARE ==
--- NOTE | 2020-08-09 10:52 | Mammography Report ---
DIGITAL SCREENING MAMMOGRAM, 08/09/2020 CLINICAL INFORMATION / INDICATION: Routine screening TECHNIQUE: Digital bilateral 2D mammography was obtained in the craniocaudal and mediolateral obliqu e projections. This examination was interpreted without the benefit of Computer-Aided Detection ya sis. COMPARISON: 08/31/2018 FINDINGS: Breast Density: The breasts are almost entirely fatty. No dominant mass, suspicious calcifications, or architectural distortion in either breast. Minimal left nodularity is stable. IMPRESSION: No mammographic evidence of malignancy. Follow up recommendation: Routine yearly BI-RADS Category 2: Benign. A "normal" or negative report should not discourage follow up or biopsy of a clinically significant f inding. A written summary of these findings will be mailed to the patient. The patient will be entered into a mammography reporting system which will generate a reminder letter for the patient's next appointmen t at the appropriate interval. The [employer] recommends yearly mammograms starting at age 40 and continuing as l mp as a woman is in good health. Breast MRI is recommended for women with an approximate 20-25% or greater lifetime risk of breast cancer, including women with a strong family history of breast or ova aaron cancer or who have been treated for Hodgkin's disease. Signer Name: Berny Givens MD Signed: 08/09/2020 10:48 AM Workstation Name: [id number]
== END 2020-08-09 09:24 | disposition home or self-care (01) ==
LOC: SPVWC 09:23
PROVIDERS: ATTEND Surgery
DX: Z12.31 Encounter for screening mammogram for malignant neoplasm of breast (principal)
CPT/HCPCS: 77067

== ENCOUNTER 2021-11-03 14:29 | Emergency (ER) | payer MEDICARE ==
[2021-11-03] MEDS ORDERED: dexAMETHasone 4 MG/ML VIAL IM ONE (21:47)
--- NOTE | 2021-11-04 00:51 | Emergency Department Report ---
ED General Adult HPI - General Chief complaint: Sore Throat Stated complaint: SORE THROAT Time Seen by Provider: 11/03/21 20:30 Source: patient Mode of arrival: Ambulatory Limitations: No Limitations - History of Present Illness Initial comments: 31-year-old female COVID-positive diagnosed 6 days ago presents emerged department complaining of throat irritation and swelling itchiness following about a 5-day course of Paxil elevated. Currently still has a residual cough occasional coryza and muscle aches but feels she is improving from the COVID overall she reports no shortness of breath, no chest pain she reports no hemoptysis or hematemesis hematochezia, does have polyarthralgia Quality: aching, dull Consistency: constant Improves with: none Worsens with: none Associated Symptoms: denies other symptoms Treatments Prior to Arrival: none - Related Data Previous Rx's Medication Instructions Recorded Last Taken Type carvediloL [Coreg] 3.125 mg PO BID #60 tablet 11/24/14 Unknown Rx hydroCHLOROthiazide [Hctz] 0.5 tab PO QDAY #30 tablet 11/24/14 Unknown Rx LORazepam [Ativan] 1 mg PO BID PRN #7 tab 07/09/15 Unknown Rx Lisinopril/Hydrochlorothiazide 1 each PO QDAY #60 tablet 07/09/15 Unknown Rx [Zestoretic 20-12.5 mg] Cyclobenzaprine HCl [Flexeril 5 MG 1 tab PO TID #21 tab 07/15/15 Unknown Rx TAB] Ibuprofen [Motrin 800 MG tab] 1 tab PO Q8HR PRN #30 tablet 07/15/15 Unknown Rx Valsartan/Hydrochlorothiazide 1 tab PO QDAY #30 tablet 01/04/17 Unknown Rx [Diovan Hct 160-25 mg] diphenhydrAMINE [Benadryl CAP] 25 mg PO Q6HR PRN #12 capsule 05/23/17 Unknown Rx predniSONE [Deltasone] 40 mg PO QDAY #5 tab 05/23/17 Unknown Rx Naproxen [Naprosyn] 500 mg PO BID #20 tablet 05/09/18 Unknown Rx traMADoL [Ultram] 50 mg PO Q6HR PRN #7 tablet 05/09/18 Unknown Rx Amoxicillin/Potassium Clav 1 each PO BID 10 Days #20 tablet 07/15/18 Unknown Rx [Augmentin 875-125 Tablet] Fluticasone [Flonase] 1 spray NS QDAY #1 bottle 07/15/18 Unknown Rx Ibuprofen [Ibuprofen 800] 800 mg PO TID PRN #30 tablet 07/15/18 Unknown Rx diphenhydrAMINE [Benadryl CAP] 25 mg PO Q6HR PRN #30 capsule 07/15/18 Unknown Rx Butalb/Acetamin/Caff 50-325-40 1 tab PO Q6HR PRN #15 tab 10/16/18 Unknown Rx [Fioricet] Albuterol Mdi (or & Nicu Only) 2 puff IH Q6H PRN #1 inhalation 01/16/19 Unknown Rx [ProAir HFA Inhaler] Cetirizine HCl [ZyrTEC] 10 mg PO QAM 14 Days #14 capsule 01/16/19 Unknown Rx methylPREDNISolone [Medrol 4MG 4 mg PO QAM 6 Days #1 tab.ds.pk 01/16/19 Unknown Rx DOSEPAK (21 tabs)] Diclofenac Sodium 50 mg PO TID PRN #21 tablet. 04/13/19 Unknown Rx Prednisone [predniSONE 10 mg 10 mg PO .TAPER #1 tab.ds.pk 04/13/19 Unknown Rx (6-Day Pack, 21 Tabs)] Famotidine [Pepcid] 40 mg PO QHS #7 11/04/21 Unknown Rx hydrOXYzine HCL [Atarax] 25 mg PO Q6HR PRN #20 tablet 11/04/21 Unknown Rx Allergies Allergy/AdvReac Type Severity Reaction Status Date / Time lisinopril Allergy Anaphylaxis Verified 11/03/21 14:34 ED Review of Systems ROS: Stated complaint: SORE THROAT Other details as noted in HPI Comment: All other systems reviewed and negative ED Past Medical Hx - Past Medical History Hx Hypertension: Yes Hx Arthritis: Yes Hx Psychiatric Treatment: Yes (Panic disorder) Additional medical history: Recurrent sinus infections - Surgical History Additional Surgical History: Hysterectomy - Social History Smoking Status: Never Smoker Substance Use Type: None - Medications Home Medications: Home Medications Medication Instructions Recorded Confirmed Last Taken Type carvediloL [Coreg] 3.125 mg PO BID #60 tablet 11/24/14 07/09/15 Unknown Rx hydroCHLOROthiazide [Hctz] 0.5 tab PO QDAY #30 tablet 11/24/14 07/09/15 Unknown Rx LORazepam [Ativan] 1 mg PO BID PRN #7 tab 07/09/15 Unknown Rx Lisinopril/Hydrochlorothiazide 1 each PO QDAY #60 tablet 07/09/15 Unknown Rx [Zestoretic 20-12.5 mg] Cyclobenzaprine HCl [Flexeril 5 MG 1 tab PO TID #21 tab 07/15/15 Unknown Rx TAB] Ibuprofen [Motrin 800 MG tab] 1 tab PO Q8HR PRN #30 tablet 07/15/15 Unknown Rx Valsartan/Hydrochlorothiazide 1 tab PO QDAY #30 tablet 01/04/17 Unknown Rx [Diovan Hct 160-25 mg] diphenhydrAMINE [Benadryl CAP] 25 mg PO Q6HR PRN #12 capsule 05/23/17 Unknown Rx predniSONE [Deltasone] 40 mg PO QDAY #5 tab 05/23/17 Unknown Rx Naproxen [Naprosyn] 500 mg PO BID #20 tablet 05/09/18 Unknown Rx traMADoL [Ultram] 50 mg PO Q6HR PRN #7 tablet 05/09/18 Unknown Rx Amoxicillin/Potassium Clav 1 each PO BID 10 Days #20 tablet 07/15/18 Unknown Rx [Augmentin 875-125 Tablet] Fluticasone [Flonase] 1 spray NS QDAY #1 bottle 07/15/18 Unknown Rx Ibuprofen [Ibuprofen 800] 800 mg PO TID PRN #30 tablet 07/15/18 Unknown Rx diphenhydrAMINE [Benadryl CAP] 25 mg PO Q6HR PRN #30 capsule 07/15/18 Unknown Rx Butalb/Acetamin/Caff 50-325-40 1 tab PO Q6HR PRN #15 tab 10/16/18 Unknown Rx [Fioricet] Albuterol Mdi (or & Nicu Only) 2 puff IH Q6H PRN #1 inhalation 01/16/19 Unknown Rx [ProAir HFA Inhaler] Cetirizine HCl [ZyrTEC] 10 mg PO QAM 14 Days #14 capsule 01/16/19 Unknown Rx methylPREDNISolone [Medrol 4MG 4 mg PO QAM 6 Days #1 tab.ds.pk 01/16/19 Unknown Rx DOSEPAK (21 tabs)] Diclofenac Sodium 50 mg PO TID PRN #21 tablet. 04/13/19 Unknown Rx Prednisone [predniSONE 10 mg 10 mg PO .TAPER #1 tab.ds.pk 04/13/19 Unknown Rx (6-Day Pack, 21 Tabs)] Famotidine [Pepcid] 40 mg PO QHS #7 11/04/21 Unknown Rx hydrOXYzine HCL [Atarax] 25 mg PO Q6HR PRN #20 tablet 11/04/21 Unknown Rx ED Physical Exam - General Limitations: No Limitations General appearance: alert, in no apparent distress - Head Head exam: Present: atraumatic, normocephalic - Eye Eye exam: Present: normal appearance, EOMI Pupils: Present: normal accommodation - ENT ENT exam: Present: mucous membranes moist - Neck Neck exam: Present: normal inspection - Respiratory Respiratory exam: Present: normal lung sounds bilaterally. Absent: respiratory distress - Cardiovascular Cardiovascular Exam: Present: regular rate, normal rhythm. Absent: systolic murmur, diastolic murmur, rubs, gallop - GI/Abdominal GI/Abdominal exam: Present: soft, normal bowel sounds - Extremities Exam Extremities exam: Present: normal inspection - Back Exam Back exam: Present: normal inspection - Neurological Exam Neurological exam: Present: alert, oriented X3 - Psychiatric Psychiatric exam: Present: normal affect, normal mood - Skin Skin exam: Present: warm, dry, intact, normal color. Absent: rash ED Course Vital Signs 11/03/21 11/03/21 14:31 21:36 Temperature 98 F 98.9 F Pulse Rate 90 84 Respiratory 18 12 Rate Blood Pressure 175/112 134/85 [Left] O2 Sat by Pulse 99 100 Oximetry Critical care attestation.: If time is entered above; I have spent that time in minutes in the direct care of this critically ill patient, excluding procedure time. ED Disposition Clinical Impression: Medication reaction Disposition: 01 HOME / SELF CARE / HOMELESS Is pt being admited?: No Does the pt Need Aspirin: No Condition: Stable Instructions: Drug Allergy, Sore Throat Prescriptions: hydrOXYzine HCL [Atarax] 25 mg PO Q6HR PRN #20 tablet PRN Reason: Itching Famotidine [Pepcid] 40 mg PO QHS #7 Referrals: ELIANE ETIENNE MD [Primary Care Provider] - 3-5 Days
[2021-11-04 01:19] VITALS: BP 138/87
== END 2021-11-04 01:19 | disposition home or self-care (01) ==
LOC: ED 14:29
DX: T50.905A Adverse effect of unspecified drugs, medicaments and biological substances, initial encounter (principal); F41.0 Panic disorder [episodic paroxysmal anxiety]; I10 Essential (primary) hypertension; M19.90 Unspecified osteoarthritis, unspecified site; Z91.09 Other allergy status, other than to drugs and biological substances; Z79.899 Other long term (current) drug therapy; Y92.89 Other specified places as the place of occurrence of the external cause
CPT/HCPCS: 96372; 99282; J1100